=== PATIENT | female | born 1995 | race Hispanic/Latino ===

== ENCOUNTER 2020-01-12 01:13 | Emergency (ER) | payer SELFPAY ==
[2020-01-12] MEDS ORDERED: Ondansetron PF 4 MG/2 ML Vial ONE (01:30)
[2020-01-12] MEDS ORDERED: Ondansetron ODT 4 MG TAB ONE (01:30)
== END 2020-01-12 03:46 | disposition home or self-care (01) ==
LOC: EDBD 01:13 → ERS 01:13
DX: F10.129 Alcohol abuse with intoxication, unspecified (principal)
CPT/HCPCS: 96361; 96374; J2405; Q0162